=== PATIENT | female | born 1985 | race Hispanic/Latino ===

== ENCOUNTER 2017-05-26 10:09 | Emergency (ER) | payer OTHER ==
--- NOTE | 2017-05-26 11:11 | Emergency Department Report ---
ED General Adult HPI - General Chief complaint: Headache Stated complaint: HEAD PAIN Time Seen by Provider: 05/26/17 10:50 Source: patient Mode of arrival: Ambulatory Limitations: No Limitations - History of Present Illness Initial comments: Patient does not complain of headache whatsoever. She is status post placement of a [employer] shunt and an apparent I presume decompressive craniotomy as a . According to the parents that shunt was placed at 18 months. She has not had follow-up for over 20 years. For the last 2 weeks she has been annoyed by the presence of her shunt in her right neck. The shunt is completely non- functional for decades. She has had no neck stiffness or soreness. She denies any photophobia, nausea, difficulty walking or problems with her coordination gait or urinating. She is otherwise asymptomatic. She has taken Advil and Tylenol intermittently. The father asked me if she should take a higher dose of her Advil. The mother requests something else for pain. They are wondering whether she should have an x-ray of her neck. -: week(s) Location: neck Radiation: non-radiation Consistency: intermittent, now resolved Improves with: none Worsens with: none Associated Symptoms: denies other symptoms Treatments Prior to Arrival: none - Related Data Home Medications Medication Instructions Recorded Confirmed Last Taken No Known Home Medications [No 05/26/17 05/26/17 Unknown Reported Home Medications] Previous Rx's Medication Instructions Recorded Last Taken Type traMADol [Ultram] 50 mg PO Q8HR PRN #10 tablet 05/26/17 Unknown Rx Allergies Allergy/AdvReac Type Severity Reaction Status Date / Time No Known Allergies Allergy Unverified 05/26/17 10:20 ED Review of Systems ROS: Stated complaint: HEAD PAIN Other details as noted in HPI Constitutional: denies: chills, fever Eyes: denies: eye pain, eye discharge, vision change ENT: denies: ear pain, throat pain Respiratory: denies: cough, shortness of breath, wheezing Cardiovascular: denies: chest pain, palpitations Endocrine: no symptoms reported Gastrointestinal: denies: abdominal pain, nausea, diarrhea Genitourinary: denies: urgency, dysuria, discharge Musculoskeletal: as per HPI. denies: back pain, joint swelling, arthralgia Skin: denies: rash, lesions Neurological: denies: headache, weakness, paresthesias Psychiatric: denies: anxiety, depression Hematological/Lymphatic: denies: easy bleeding, easy bruising ED Past Medical Hx - Past Medical History Additional medical history: SHUNT/ HYPOGYLEMIC - Surgical History Past Surgical History?: Yes Additional Surgical History: SHUNT A - Social History Smoking Status: Never Smoker Substance Use Type: None - Medications Home Medications: Home Medications Medication Instructions Recorded Confirmed Last Taken Type No Known Home Medications [No 05/26/17 05/26/17 Unknown History Reported Home Medications] traMADol [Ultram] 50 mg PO Q8HR PRN #10 tablet 05/26/17 Unknown Rx ED Physical Exam - General Limitations: No Limitations General appearance: alert, in no apparent distress - Head Head exam: Present: atraumatic, normocephalic - Eye Eye exam: Present: normal appearance, PERRL, EOMI. Absent: scleral icterus Pupils: Present: mydriatic (somewhat) - ENT ENT exam: Present: normal exam, mucous membranes moist - Neck Neck exam: Present: normal inspection, other (the patient has a palpable shunt in her neck. There is no signs of swelling or erythema or any inflammatory process. It was not tender to palpation. The valve was located and it does not pump and fill.). Absent: tenderness, meningismus - Respiratory Respiratory exam: Present: normal lung sounds bilaterally. Absent: respiratory distress - Cardiovascular Cardiovascular Exam: Present: regular rate, normal rhythm. Absent: systolic murmur, diastolic murmur, rubs, gallop - GI/Abdominal GI/Abdominal exam: Present: soft, normal bowel sounds. Absent: distended, tenderness, guarding, rebound - Extremities Exam Extremities exam: Present: normal inspection - Back Exam Back exam: Present: normal inspection - Neurological Exam Neurological exam: Present: alert, oriented X3, CN II-XII intact, normal gait, other (cerebellar testing was normal). Absent: motor sensory deficit - Psychiatric Psychiatric exam: Present: normal affect, normal mood - Skin Skin exam: Present: warm, dry, intact, normal color. Absent: rash ED Course Vital Signs 05/26/17 05/26/17 05/26/17 10:15 10:57 11:00 Temperature 97.6 F Pulse Rate 96 H Respiratory 18 Rate Blood Pressure 128/79 136/93 123/93 O2 Sat by Pulse 100 Oximetry 05/26/17 11:03 Temperature Pulse Rate 109 H Respiratory Rate Blood Pressure O2 Sat by Pulse Oximetry - Reevaluation(s) Reevaluation #1: No clinical indication for emergency imaging at this time. 05/26/17 11:15 Critical care attestation.: If time is entered above; I have spent that time in minutes in the direct care of this critically ill patient, excluding procedure time. ED Disposition Clinical Impression: S/P [employer] shunt, Neck pain Disposition: DC- TO HOME OR SELFCARE Is pt being admited?: No Does the pt Need Aspirin: No Condition: Stable Additional Instructions: Return any acute change or problem. Further evaluation as an outpatient is recommended through [facility] [phone]. Prescriptions: traMADol [Ultram] 50 mg PO Q8HR PRN #10 tablet PRN Reason: Pain Referrals: [facility] [Other] - 3-5 Days Time of Disposition: 11:13
[2017-05-26 11:49] VITALS: BP 115/78
== END 2017-05-26 11:49 | disposition home or self-care (01) ==
LOC: ED 10:09
DX: M54.2 Cervicalgia (principal)
CPT/HCPCS: 99282